=== PATIENT | female | born 1985 | race Caucasian/White ===

== ENCOUNTER 2020-03-25 18:59 | Outpatient (CLI) | payer OTHER ==
[~2020-03-25] VITALS: Ht 162.6 cm; Wt 85.5 kg
[2020-03-25 19:04] VITALS: BP 116/70
[2020-03-25 19:42] LABS: MICROSCOPIC INDICATED
[2020-03-25 19:44] LABS: CLUE CELLS PRESENT (NONE SEEN); WET PREP WBCS MANY (FEW)
[2020-03-25] MEDS ORDERED: METR-90 PO ×2 (20:35→20:36)
== END 2020-03-25 20:40 | disposition home or self-care (01) ==
LOC: LDOP 18:59
PROVIDERS: ATTEND Obstetrics & Gynecology
DX: O26.893 Other specified pregnancy related conditions, third trimester (principal); N76.0 Acute vaginitis; Z3A.33 33 weeks gestation of pregnancy
CPT/HCPCS: 59025; 81001; 87086; 87210; 87808